=== PATIENT | male | born 1975 | race Caucasian/White ===

== ENCOUNTER 2016-12-08 06:05 | Emergency (ER) | payer SELFPAY ==
[~2016-12-08] VITALS: Ht 190.5 cm; Wt 107.9 kg
[~2016-12-08 06:05] MED LIST: CLEOCIN300 MG PO; COLACE100 MG PO; FLEXERIL10 MG PO; OXYCODONE HCL30 MG PO; PERCOCET 5/31 TABLET PO; ZOFRAN4 MG PO
[2016-12-08 06:58] LABS: BASOPHIL COUNT 0.1 K/uL (0-0.1); EOSINOPHIL (%) 3.9 % (0-5); EOSINOPHIL COUNT 0.4 K/uL (0-0.3); IMMATURE GRANULOCYTE (%) 0.2 % (0.0-0.7); INSTRUMENT ABS NEUTROPHIL CT 6.6 K/uL; LYMPHOCYTE COUNT 2.1 K/uL (1.0-2.8); MCH 30.9 PG (29.0-34.0); MCHC 33.5 G/DL (30.0-36.0); MCV 92.2 FL (86-99); MEAN PLAT.VOLUME 10.3 uM^3 (9.0-12.4); MONOCYTE (%) 11.3 % (3-12); MONOCYTE COUNT 1.2 K/uL (0-0.8); NEUTROPHIL (%) 63.5 % (45-76); NEUTROPHIL COUNT 6.6 K/uL (1.8-6.4); PLATELET COUNT 247 K/uL (156-360); RBC DIS.WIDTH-CV 12.7 % (11.8-14.6); RBC DIS.WIDTH-SD 43.4 % (39-53); RED BLOOD COUNT 4.34 M/uL (4.00-5.50); WHITE BLOOD COUNT 10.3 K/uL (4.1-10.2)
[2016-12-08 07:00] VITALS: BP 119/62
[2016-12-08 07:58] LABS: ANION GAP 7 MEQ/L (2-14); CHLORIDE 99 MEQ/L (99-109); POTASSIUM 3.6 MEQ/L (3.7-5.4); SAMPLE HEMOLYSIS CHECK 0; SAMPLE ICTERIC CHECK 0; SAMPLE LIPEMIA CHECK 0; SODIUM 136 MEQ/L (136-147); TOTAL BILIRUBIN 0.5 MG/DL (0.0-1.0)
[2016-12-08 08:05] LABS: ALKALINE PHOSPHATASE 103 IU/L (3-129); GFR ESTIMATE (CALCULATED) > 59 mL/min/; GLUCOSE 107 mg/dL (70-99); SERUM ETHYL ALCOHOL < 10 mg/dL; UREA NITROGEN (BUN) 8 mg/dL (9-23)
[2016-12-08] MEDS ORDERED: CLEOCIN150 MG PO (08:24)
[2016-12-08] MEDS ORDERED: MOTRIN800 MG PO (08:24)
[2016-12-08 08:43] LABS: C-REACTIVE PROTEIN 56.7 MG/L (0-10)
[2016-12-08 09:02] LABS: ERTH.SED.RATE 34 MM/HR (0-15)
== END 2016-12-08 09:42 | disposition home or self-care (01) ==
LOC: EME 06:05
PROVIDERS: Emergency Medicine
DX: L03.115 Cellulitis of right lower limb (principal); L03.116 Cellulitis of left lower limb
CPT/HCPCS: 80053; 85025; 85651; 86140; 99281; 99284; G0480

== ENCOUNTER 2018-01-18 17:49 | Emergency (ER) | payer OTHER ==
[~2018-01-18] VITALS: Ht 190.5 cm; Wt 91.7 kg
[~2018-01-18 17:49] MED LIST changes: +CLEOCIN150 MG PO; +MOTRIN800 MG PO
[2018-01-18 18:48] LABS: APPEARANCE CLEAR ((CLEAR)); BILIRUBIN NEGATIVE; BLOOD NEGATIVE; COLOR YELLOW ((YELLOW)); GLUCOSE (STRIP) NEGATIVE; KETONES 5; LEUKOCYTES NEGATIVE; NITRITE NEGATIVE; PROTEIN (STRIP) 30; SPECIFIC GRAVITY 1.033 (1.000-1.030); UCUL ADDED? NO; UROBILINOGEN 0.2 MG/DL (0.2-1.0)
[2018-01-18 18:59] LABS: HEMATOCRIT 40.4 % (38.0-50.0); HEMOGLOBIN 13.6 G/DL (12.5-16.6); MCH 29.8 PG (29.0-34.0); MCHC 33.7 G/DL (30.0-36.0); MCV 88.6 FL (86-99); PLATELET COUNT 255 K/uL (156-360); RBC DIS.WIDTH-CV 13.8 % (11.8-14.6); RBC DIS.WIDTH-SD 45.1 % (39-53); RED BLOOD COUNT 4.56 M/uL (4.00-5.50); WHITE BLOOD COUNT 11.6 K/uL (4.1-10.2)
[2018-01-18 19:12] LABS: ALBUMIN 4.4 g/dL (3.2-4.8); CHLORIDE 107 mEq/L (99-109); POTASSIUM 3.8 mEq/L (3.7-5.4); SODIUM 141 mEq/L (136-147)
[2018-01-18 19:14] LABS: GLUCOSE 88 mg/dL (70-99); TOTAL PROTEIN 8.5 g/dL (6.4-8.3)
[2018-01-18 19:16] LABS: TOTAL BILIRUBIN 0.7 mg/dL (0.0-1.0)
[2018-01-18 19:18] LABS: ALKALINE PHOSPHATASE 128 IU/L (3-129); GFR ESTIMATE (CALCULATED) > 59 mL/min/ (58.99-99999)
[2018-01-18 19:19] LABS: UREA NITROGEN (BUN) 18 mg/dL (9-23)
[2018-01-18 19:20] LABS: AST (GOT) 30 IU/L (2-34)
[2018-01-18 19:21] LABS: ALT (GPT) 21 IU/L (3-49); LIPASE 6 U/L (1.0-51.0)
[2018-01-18] MEDS ORDERED: BENTYL10 MG PO (22:48)
[2018-01-18] MEDS ORDERED: ZOFRAN4 MG PO (22:48)
[2018-01-18 22:54] VITALS: BP 114/70
== END 2018-01-18 22:55 | disposition home or self-care (01) ==
LOC: EME 17:49
PROVIDERS: Physician Assistant
DX: K52.9 Noninfective gastroenteritis and colitis, unspecified (principal); J45.909 Unspecified asthma, uncomplicated; F17.200 Nicotine dependence, unspecified, uncomplicated; Z88.0 Allergy status to penicillin
CPT/HCPCS: 74177; 80053; 81003; 83690; 85027; 99281; 99285; J1885; J2405; J7030